=== PATIENT | male | born 1990 | race Hispanic/Latino ===

== ENCOUNTER 2023-05-01 20:34 | Emergency (ER) | payer SELFPAY ==
[~2023-05-01] VITALS: Ht 162.6 cm; Wt 154.2 kg
[2023-05-01] MEDS ORDERED: ONDANSETRON HCL INJ 2MG/ML 2ML 2 MG/ML VIAL IV STA (20:57)
[2023-05-01] MEDS ORDERED: ACETAMINOPHEN 325 MG TAB ONE (20:58)
[2023-05-01] MEDS ORDERED: ONDANSETRON HCL INJ 2MG/ML 2ML 2 MG/ML VIAL ONE (20:58)
[2023-05-01] MEDS ORDERED: ACETAMINOPHEN 325 MG TAB PO ONE (21:00)
[2023-05-01] MEDS ORDERED: SODIUM CHLORIDE 0.9% 1000ML 1,000 ML IV ONE (21:00)
[2023-05-01 21:26] LABS: ALBUMIN/GLOBULIN RATIO 1.2 (0.8-2.0); ANION GAP 14.7 mmol/L (8-16); CALCIUM 9.2 mg/dL (8.4-10.2); CREATININE, SERUM 0.87 mg/dL (0.72-1.25); POTASSIUM 3.7 mmol/L (3.5-5.1)
[2023-05-01 21:29] LABS: BASOPHILS % 0.5 % (0.0-1.0); EOSINOPHILS # (AUTO) 0.1 (0.0-0.4); EOSINOPHILS % 0.8 % (0.0-6.0); HEMATOCRIT 41.3 % (38.2-49.6); HEMOGLOBIN 15.1 g/dL (14.0-18.0); LYMPHOCYTES # (AUTO) 0.4 (1.0-3.2); LYMPHOCYTES % 4.4 % (18.0-39.1); MEAN CORPUSCULAR HEMOGLOBIN 31.8 pg (28-32); MEAN CORPUSCULAR HGB CONC 36.6 g/dL (31-35); MEAN CORPUSCULAR VOLUME 86.9 fL (81-99); MONOCYTES # (AUTO) 0.8 (0.2-0.8); MONOCYTES % 9.9 % (4.4-11.3); NEUTROPHILS % 83.4 % (38.7-80.0); PLATELET COUNT 225 x10e3/uL (140-360); RED BLOOD COUNT 4.75 x10e6/uL (4.3-5.7); RED CELL DISTRIBUTION WIDTH 12.4 % (11.7-14.4); WHITE BLOOD COUNT 8.41 x10e3/uL (4.8-10.8)
[2023-05-01 21:48] LABS: CLARITY,URINE SL CLOUDY (CLEAR); COLOR,URINE YELLOW (YELLOW); KETONES,URINE TRACE (NEGATIVE); LEUKOCYTE ESTERASE ,URINE NEGATIVE (NEGATIVE); NITRITE,URINE NEGATIVE (NEGATIVE); PROTEIN,URINE DIPSTICK TRACE (NEGATIVE); URINE UROBILINOGEN 0.2 mg/dL (0.2 - 1)
[2023-05-01 21:58] LABS: BACTERIA,URINE FEW /HPF; MUCUS,URINE FEW (RARE); RBC,URINE 0-5 /HPF (0-5)
[2023-05-01] MEDS ORDERED: TAMIFLU75 MG PO (22:40)
[2023-05-01] MEDS ORDERED: ONDANSETRON ODT4 MG SL (22:40)
[2023-05-01] MEDS ORDERED: XOFLUZA80 MG PO (22:45)
[2023-05-01 23:27] VITALS: BP 117/72; PULSE 98; RESP 17; TEMP 99.1; O2SAT 97
== END 2023-05-01 23:05 | disposition home or self-care (01) ==
LOC: ER 20:40
DX: R50.9 Fever, unspecified (principal); J10.1 Influenza due to other identified influenza virus with other respiratory manifestations; R05.9 Cough, unspecified; Z20.822 Contact with and (suspected) exposure to COVID-19
CPT/HCPCS: 36415; 71045; 80053; 81001; 83605; 84484; 85025; 87040; 87086; 87400; 99284; J0696; J2405; J7030; U0002; 93005